=== PATIENT | female | born 1995 ===

== ENCOUNTER 2018-07-25 15:56 | Emergency (ER) | payer MEDICAID, SELFPAY ==
[2018-07-25 16:48] VITALS: BMI 24.1
[2018-07-25 18:47] LABS: BASO % 0.6 % (0.0-2.0); EOS # 0.1 K/uL (0.0-0.7); EOS % 0.8 % (0.0-4.0); HEMOGLOBIN 9.4 g/dL (12.0-16.0); LYMPH # 1.5 K/uL (1.0-4.3); MEAN CORPUSCULAR HEMOGLOBIN 27.9 pg (27.0-31.0); MEAN CORPUSCULAR HGB CONC 32.8 g/dL (33.0-37.0); MEAN PLATELET VOLUME 11.9 fl (7.2-11.7); MONO # 0.5 K/uL (0.0-0.8); NEUT # 4.4 K/uL (1.8-7.0); NEUT % 67.6 % (50.0-75.0); NRBC % 0.1 % (0.0-0.0); RBC 3.37 Mil/uL (3.80-5.20); RED CELL DISTRIBUTION WIDTH 13.8 % (11.5-14.5); WHITE BLOOD COUNT 6.5 K/uL (4.8-10.8)
[2018-07-26 02:25] VITALS: BP 105/61; PULSE 90; RESP 18; TEMP 98.5; O2SAT 100
--- NOTE | 2018-07-26 11:37 | OBHP ---
Datetime: 07/25/2018 16:29 IP Adm Impression: Term, intrauterine IP Admit Plan: Observation/Evaluation Admit Comment, IP Provider: HPI: 23 y/o with EGA 40.3 weeks, EDC 07/22/18 who presents with c /o no feeling the baby moving and intermittent pelvic pain 5/5 after a fall today at 12PM, she had an accidental slip and fall, denies VB, LOF. She reports CONTX inrregularly, patient at this time now r eports +FM. Denies other complains. ROS: As per HPI. Care Provider: Dr Cox at [facility]: x2 in previous pregnancies in 2013 and 2016, x1 SAB(pt does not remember year), patien t denies problems in current . PMH:None FMH:None SURG: None Allerg:NKA MEDS:PNV LABS: HIV neg, HB neg,GBS neg 07/02, Rubella +/inmune, GC/Cl Neg, RPR neg, ABORh A+. A/P 23 y/o with a term EGA 40.3wks, EDC 07/22, S/P fall. Will evaluate patient and monitor patient for any acute changes. -CBC w diff, Type and screen -Monitor maternal VS and FHR trace Case discussed with attending Dr Montejo. MD Sandro PGY1 FHR - Baseline A Provider: 150 Comments, ACOG Physical Exam: GEN:NAD HEENT: Normocephalic, EOMI RESP: CTA b/l CV: RRR, no murmurs heard ABD: Soft, Gravid LE: No edema. IP Hx Assessment: The History has been Reviewed and is Current EGA AdmitDate IP: 40.3 Vital Signs Provider: Reviewed IP Chief Complaint: Trauma/Fall NICHD Variability Prov Fetus A: Moderate 6-25bpm NICHD Accel Fetus A IP Provider: 15X15 FHR Category Provider Fetus A: Category I Dilatation, Provider: 2 Effacement, Provider: 20 Station, Provider: -3
== END 2018-07-25 21:30 | disposition home or self-care (01) ==
LOC: H.EROB2 15:56
DX: Z36.9 Encounter for antenatal screening, unspecified (principal); W01.0XXA Fall on same level from slipping, tripping and stumbling without subsequent striking against object, initial encounter; Z3A.40 40 weeks gestation of pregnancy